=== PATIENT | female | born 1980 | race Caucasian/White ===

== ENCOUNTER → 2017-04-29 | Outpatient (CLI) | payer BC ==
[~2017-04-29] MED LIST: OMNIPAQUE 350 MG/ML, 100ML BOTTLE ONE
== END | disposition home or self-care (01) ==
LOC: CFH 11:50
PROVIDERS: ATTEND Nurse Practitioner Primary Care
DX: K76.0 Fatty (change of) liver, not elsewhere classified (principal); R16.0 Hepatomegaly, not elsewhere classified; K21.9 Gastro-esophageal reflux disease without esophagitis; Z79.899 Other long term (current) drug therapy; Z68.39 Body mass index [BMI] 39.0-39.9, adult
CPT/HCPCS: 74177; Q9967

== ENCOUNTER → 2018-04-24 | Outpatient (CLI) | payer BC ==
[~2018-04-24] MED LIST changes: +CHOL500045 PO; +MEGESTROL PO; +METF500T17 PO; +METO25TA35 PO; -OMNIPAQUE 350 MG/ML, 100ML BOTTLE ONE; +VITAMIN B12 PO
[2018-04-24 08:52] LABS: INTERNATIONAL NORMALIZED RATIO 1.07 (0.93-1.1); PROTHROMBIN TIME 11.3 Seconds (9.6-11.5)
[2018-04-24 08:54] LABS: ALBUMIN 3.9 g/dL (3.4-5.0); ANION GAP 8 mmol/L (5-15); CHLORIDE 110 mmol/L (98-107)
[2018-04-24 08:57] LABS: ALANINE AMINOTRANSFERASE 25 U/L (12-78); ALKALINE PHOSPHATASE 67 U/L (45-117); BILIRUBIN,TOTAL 0.9 mg/dL (0.2-1.0); CREATININE 0.82 mg/dL (0.55-1.02); TOTAL PROTEIN 8.1 g/dL (6.4-8.2)
== END | disposition home or self-care (01) ==
LOC: STAR 07:28
PROVIDERS: ATTEND Specialist
DX: Z01.818 Encounter for other preprocedural examination (principal); N85.00 Endometrial hyperplasia, unspecified
CPT/HCPCS: 36415; 80053; 85610; 85730

== ENCOUNTER 2018-05-08 07:29 | Day surgery (SDC) | payer BC ==
[~2018-05-08] VITALS: Ht 177.8 cm; Wt 128.6 kg
[2018-05-08] MEDS ORDERED: ACETAMINOPHEN 500 MG TABLET PO ONE ×2 (08:00→09:00)
[2018-05-08] MEDS ORDERED: LACTATED RINGERS 1,000 ML IV SCH (08:50)
[2018-05-08] MEDS ORDERED: LIDOCAINE-MPF 1%, 2ML INFIL ONE (09:00)
[2018-05-08] MEDS ORDERED: HALOPERIDOL 5 MG/ML IV PRN ×2 (10:00)
[2018-05-08] MEDS ORDERED: OXYcodone 5 MG/5 ML ORAL.SOL UDC PO PRN (10:00)
[2018-05-08] MEDS ORDERED: PROMETHAZINE 25 MG/ML, 1ML IV PRN (10:00)
[2018-05-08] MEDS ORDERED: DIPHENHYDRAMINE 50 MG/ML, 1ML IVPush PRN (10:00)
[2018-05-08] MEDS ORDERED: HYDROmorphone 2 MG/ML, 1ML IVPush PRN (10:00)
[2018-05-08] MEDS ORDERED: METOPROLOL 1 MG/ML, 5ML IV PRN (10:00)
[2018-05-08] MEDS ORDERED: LABETALOL 5MG/ML, 20ML IV PRN (10:00)
[2018-05-08] MEDS ORDERED: hydrALAzine 20 MG/ML, 1ML IV PRN (10:00)
[2018-05-08] MEDS ORDERED: MEPERIDINE/PF 25MG/0.5ML IVPush PRN (10:00)
[2018-05-08] MEDS ORDERED: PROCHLORPERAZINE 5 MG/ML, 2ML IV PRN ×2 (10:00)
[2018-05-08] MEDS ORDERED: KETOROLAC 30 MG/1 ML ONE (11:19)
[2018-05-08] MEDS ORDERED: ONDANSETRON 2MG/ML, 2ML ONE (11:19)
[2018-05-08] MEDS ORDERED: CEFAZOLIN 1,000 MG ONE (11:19)
[2018-05-08] MEDS ORDERED: DEXAMETHASONE 4 MG/ML, 1ML ONE (11:19)
[2018-05-08] MEDS ORDERED: PROPOFOL 10 MG/ML, 20ML ONE (11:19)
[2018-05-08 12:10] LABS: HCG UR SG 1.029 (1.003-1.030)
[2018-05-08] MEDS ORDERED: OXYTOCIN 10 UNITS/ML, 1ML ONE (12:35)
[2018-05-08] MEDS ORDERED: METHYLERGONOVINE 0.2 MG/ML IM ONE (12:36)
[2018-05-08] MEDS ORDERED: VASOPRESSIN 20 UNIT/ML, 1ML ONE (12:36)
[2018-05-08] MEDS ORDERED: SILVER NITRATE STICK TP ONE (12:36)
[2018-05-08] MEDS ORDERED: FENTANYL PF 100 MCG/2ML ONE ×2 (12:52→13:38)
[2018-05-08] MEDS ORDERED: OXYcodone 5 MG/5 ML ORAL.SOL UDC ONE (13:38)
[2018-05-08] MEDS: FENTANYL PF 100 MCG/2ML IV PRN ×2 (13:40→13:55)
== END 2018-05-08 16:15 | disposition home or self-care (01) ==
LOC: OUT 07:29
PROVIDERS: ATTEND Specialist
DX: N84.0 Polyp of corpus uteri (principal); K21.9 Gastro-esophageal reflux disease without esophagitis; D64.9 Anemia, unspecified; E66.01 Morbid (severe) obesity due to excess calories; Z68.41 Body mass index [BMI] 40.0-44.9, adult; Z91.018 Allergy to other foods; Z72.89 Other problems related to lifestyle; Z98.890 Other specified postprocedural states; Z79.899 Other long term (current) drug therapy
CPT/HCPCS: 58120; 81025; 82962; 88305; J0690; J1100; J1885; J2405; J2704; J3010; J2210; J2590